=== PATIENT | male | born 1970 | race Caucasian/White ===

== ENCOUNTER 2019-02-28 13:40 | Observation (INO) | payer BC ==
--- NOTE | 2019-02-28 14:11 | ED ---
General Adult HPI - General Chief complaint: Chest Pain Stated complaint: Chest pressure/facial numbness Time Seen by Provider: 02/28/19 13:57 Source: patient Mode of arrival: ambulatory Limitations: no limitations - History of Present Illness Initial comments: Dictation was produced using [employer] dictation software. please excuse any g rammatical, word or spelling errors. Chief Complaint: 48-year-old male with multiple comorbidities presents with severe chest pain with radiation to the left chest. History of Present Illness: It is a 48-year-old male. He states he has had a couple hours of extreme sharp chest pain with some dull characteristic surrounding it. He states that the pain radiates to his left side. He was told that he appeared pale by a coworker. Patient also complains of some paresthesias to the left upper extremity left lower extremity that have been persistent since the onset of his symptoms. Patient denies any exacerbating or mitigating factors. Denies any pleurisy. Patient denies any history of aortic disease. He was recently value by core filer for Holter monitor placement. The ROS documented in this emergency department record has been reviewed and confirmed by me. Those systems with pertinent positive or negative responses have been documented in the HPI. All other systems are other negative and/or noncontributory. PHYSICAL EXAM: General Impression: Alert and oriented x3, not in acute distress HEENT: Normocephalic atraumatic, extra-ocular movements intact, pupils equal and reactive to light bilaterally, mucous membranes moist. Cardiovascular: Heart regular rate and rhythm, S1&S2 audible, no murmurs, rubs or gallops Chest: Lungs clear to auscultation bilaterally, no rhonchi, no wheeze, no rales Abdomen: Bowel sounds present, abdomen soft, non-tender, non-distended, no organomegaly Musculoskeletal: Pulses present and equal in all extremities, no peripheral margarito a Motor: no focal deficits noted Neurological: CN II-XII grossly intact, no focal motor or sensory deficits noted Skin: Intact with no visualized rashes Psych: Normal affect and mood ED course: 48-year-old male presents with chest pain and neurologic symptoms. Signs upon arrival are within acceptable limits. Laboratory evaluation obtained. Mild leukocytosis secondary to stress. Metabolic panel is negative. Cardiac enzymes negative. There is concern for aortic dissection versus on embolus given patient's symptoms. CT angios negative for any acute processes. There are incidental findings of active lymph nodes. Clinical presentation consistent with atypical chest pain with typical features. Patient given aspirin. Patient be admitted for serial troponins and cardiac consultation. Patient care discussed with some physician group who is willing to accept admission. EKG interpretation: Ventricular rate 76, normal sinus rhythm, CA interval 146, QS 80, QTc 398. No CA prolongation, no QTC prolongation, no ST or T-wave changes noted. Nonspecific changes. There appears to be some mild hyperacute T waves noted in the anterior precordial leads. - Related Data Home Medications Medication Instructions Recorded Confirmed No Known Home Medications 06/24/14 02/28/19 Allergies Allergy/AdvReac Type Severity Reaction Status Date / Time Sulfa (Sulfonamide Allergy Rash/Hives Verified 02/28/19 14:04 Antibiotics) Tetracyclines Allergy Rash/Hives Verified 02/28/19 14:04 Review of Systems ROS Statement: Those systems with pertinent positive or pertinent negative responses have been documented in the HPI. ROS Other: All systems not noted in ROS Statement are negative. Past Medical History Additional Past Medical History / Comment(s): aortic and mitral valve prolapse. History of Any Multi-Drug Resistant Organisms: None Reported Additional Past Surgical History / Comment(s): urethral surgery, benign tumor removed from left side of neck, cyst removed from left wrist. Past Psychological History: No Psychological Hx Reported Smoking Status: Current every day smoker Past Alcohol Use History: None Reported Past Drug Use History: None Reported General Exam Limitations: no limitations Course Vital Signs 02/28/19 02/28/19 02/28/19 13:47 14:07 14:47 Temperature 98.2 F Pulse Rate 73 69 Pulse Rate [ 67 Bilateral] Respiratory 18 16 Rate Blood Pressure 150/101 134/90 O2 Sat by Pulse 100 96 Oximetry Medical Decision Making - Lab Data Result diagrams: 02/28/19 14:20 02/28/19 14:20 Lab Results 02/28/19 02/28/19 02/28/19 Range/Units 14:20 14:20 14:20 WBC 10.7 H (3.8-10.6) k/uL RBC 5.24 (4.30-5.90) m/uL Hgb 15.2 (13.0-17.5) gm/dL Hct 46.1 (39.0-53.0) % MCV 88.0 (80.0-100.0) fL MCH 29.1 (25.0-35.0) pg MCHC 33.0 (31.0-37.0) g/dL RDW 14.3 (11.5-15.5) % Plt Count 191 (150-450) k/uL Neutrophils % 62 % Lymphocytes % 27 % Monocytes % 5 % Eosinophils % 2 % Basophils % 1 % Neutrophils # 6.6 (1.3-7.7) k/uL Lymphocytes # 2.9 (1.0-4.8) k/uL Monocytes # 0.6 (0-1.0) k/uL Eosinophils # 0.3 (0-0.7) k/uL Basophils # 0.1 (0-0.2) k/uL Sodium 139 (137-145) mmol/L Potassium 4.8 (3.5-5.1) mmol/L Chloride 106 (98-107) mmol/L Carbon Dioxide 26 (22-30) mmol/L Anion Gap 7 mmol/L BUN 11 (9-20) mg/dL Creatinine 0.81 (0.66-1.25) mg/dL Est GFR (CKD-EPI)AfAm >90 (>60 ml/min/1.73 sqM) Est GFR (CKD-EPI)NonAf >90 (>60 ml/min/1.73 sqM) Glucose 90 (74-99) mg/dL Calcium 9.1 (8.4-10.2) mg/dL Total Bilirubin 0.5 (0.2-1.3) mg/dL AST 28 (17-59) U/L ALT 19 L (21-72) U/L Alkaline Phosphatase 111 (38-126) U/L Troponin I <0.012 (0.000-0.034) ng/mL Total Protein 7.2 (6.3-8.2) g/dL Albumin 4.3 (3.5-5.0) g/dL Lipase 105 (23-300) U/L Disposition Clinical Impression: Chest pain Disposition: ADMITTED IP TO THIS [facility] Condition: Fair Referrals: None,Stated [Primary Care Provider] - 1-2 days Decision Time: 15:31
[2019-02-28 14:51] LABS: ALT 19 U/L (21-72); AST 28 U/L (17-59); Albumin 4.3 g/dL (3.5-5.0); Alkaline Phosphatase 111 U/L (38-126); Anion Gap 7 mmol/L; Blood Urea Nitrogen 11 mg/dL (9-20); Calcium 9.1 mg/dL (8.4-10.2); Carbon Dioxide 26 mmol/L (22-30); Chloride 106 mmol/L (98-107); Glucose 90 mg/dL (74-99); Lipase 105 U/L (23-300); Potassium 4.8 mmol/L (3.5-5.1); Sodium 139 mmol/L (137-145); Total Bilirubin 0.5 mg/dL (0.2-1.3); Total Protein 7.2 g/dL (6.3-8.2)
--- NOTE | 2019-02-28 14:56 | CT ---
EXAMINATION TYPE: CT angio chest DATE OF EXAM: 02/28/2019 COMPARISON: NONE HISTORY: Chest pain and left arm numbness CT DLP: 351.8 mGycm. Automated Exposure Control for Dose Reduction was Utilized. CONTRAST: CTA scan of the thorax is performed with IV Contrast, patient injected with 100 mL of Isovue 370, pul monary embolism protocol. MIP Images are created on CT scanner and reviewed. FINDINGS: LUNGS: Mild paraseptal emphysematous changes are seen of the lungs. The lungs are grossly clear, ther e is no concerning parenchymal mass or nodule identified. There is no pleural effusion or pneumotho rax seen. The tracheobronchial tree is patent. MEDIASTINUM: There is satisfactory enhancement of the pulmonary artery and its branches, there is no CT evidence for pulmonary embolism. There are no greater than 1 cm hilar or mediastinal lymph nodes. Limits of normal 1.0 cm left aorticopulmonary window lymph node is seen in neck of the reactive. No cardiomegaly or pericardial effusion is seen. No evidence of thoracic aortic aneurysm nor dissection . OTHER: Bilateral slightly asymmetric gynecomastia seen, right greater than left in the retroareolar r egion. Hepatic steatosis is also noted in the visualized portion of the liver. IMPRESSION: 1. No evidence of pulmonary embolism, thoracic aortic aneurysm or dissection. 2. Incidentally noted solitary upper limits of normal size left aorticopulmonary window lymph node, l ikely reactive. 3. Also incidentally noted mild gynecomastia in hepatic steatosis.
[2019-02-28 15:24] LABS: Basophils # (A) 0.1 k/uL (0-0.2); Basophils % (A) 1 %; Eosinophils # (A) 0.3 k/uL (0-0.7); Eosinophils % (A) 2 %; HCT 46.1 % (39.0-53.0); HGB 15.2 gm/dL (13.0-17.5); Lymphocytes # (A) 2.9 k/uL (1.0-4.8); Lymphocytes % (A) 27 %; MCH 29.1 pg (25.0-35.0); Mean Platelet Volume 8.3; Monocytes # (A) 0.6 k/uL (0-1.0); Monocytes % (A) 5 %; Neutrophils # (A) 6.6 k/uL (1.3-7.7); Neutrophils % (A) 62 %; Platelet Count 191 k/uL (150-450); RBC 5.24 m/uL (4.30-5.90); RDW 14.3 % (11.5-15.5); WBC 10.7 k/uL (3.8-10.6)
[2019-02-28] MEDS ORDERED: ASPIRIN 81 MG PO STA (15:30)
[2019-02-28] MEDS ORDERED: NITROGLYCERIN SL TABS 0.4 MG TAB SUBLINGUAL PRN (15:31)
[2019-02-28] MEDS ORDERED: MORPHINE SULFATE 2 MG/ML SYRINGE IV PRN (15:55)
[2019-02-28] MEDS ORDERED: ACETAMINOPHEN TAB 325 MG TAB PO PRN (15:55)
[2019-02-28] MEDS ORDERED: HYDROcodone/APAP 5-325MG 1 EACH TAB PO PRN (15:55)
[2019-02-28] MEDS ORDERED: NALOXONE 0.4 MG/ML 1 ML VIAL IV PRN (15:55)
[2019-02-28 17:03] VITALS: BMI 26.7
--- NOTE | 2019-02-28 18:23 | P.CNNES ---
History of Present Illness Consult date: 02/28/19 Reason for Consult: Numbness face, left side Chief complaint: Numbness left side, weakness History of Present Illness: I was informed about this patient 10 minutes ago at 5:40 PM for evaluation for possible stroke TIA. Came to see the patient right away and evaluated the patient. Patient is a 48-year-old right-hand dominant male, who was at work at 12:30 PM, when he suddenly felt pressure in the chest, which he described as a stabbing pain. He was noticed to be pale at that time. He went into the office at work, and sat down. It lasted for 15 minutes, and about 15 minutes later, he noticed mental confusion, disorientation, fogginess, and his left leg became heavy, left arm was numb and his left jaw felt numb. He felt disoriented, like in a daze. He also was noted to have to force to focus on certain words. Patient came to the hospital and was evaluated for chest pain. There was no facial droop, sl urred speech, loss of vision, diplopia, nausea or vomiting. He never had any history of strokes or TIAs. Patient's blood pressure in the ER was 134/90, pulse rate 69 and respirations 16. No computed tomography scan of head available. Patient states that he still has some residual numbness of the left lower jaw, left arm distally in the ulnar distribution, and some heaviness in the left leg. At this time patient is not a candidate for intravenous TPA, as his symptoms have been present for greater than 4.5 hours, and low NIH stroke scale. Patient states that he used to have hypertension, was better, but lately the blood pressure has been going up again. Denies diabetes. Patient has been a smoker for 31 years. He smoked 1 pack per day for initial 10 years, then 2 packs per day for next 10-15 years, and now cutback to less than one pack per day in the past 5 years. Patient denies any alcohol or drugs. Patient does not take any antiplatelet medication at home. Review of Systems Constitutional: Reports weakness Eyes: denies blurred vision, denies bulging eye, denies decreased vision, denies diplopia, denies loss of vision Ears: deny: decreased hearing Ears, nose, mouth and throat: Denies vertigo Cardiovascular: Reports chest pain, Reports high blood pressure, Denies shortness of breath Respiratory: Denies wheezing Past Medical History Past Medical History: Asthma, Chest Pain / Angina, GERD/Reflux, Hypertension, Mitral Valve Prolapse (MVP), Pneumonia, Respiratory Disorder, Sleep Apnea/CPAP/BIPAP Additional Past Medical History / Comment(s): aortic and mitral valve prolapse, broncitis History of Any Multi-Drug Resistant Organisms: None Reported Additional Past Surgical History / Comment(s): urethral surgery, benign tumor removed from left side of neck, cyst removed from left wrist. Past Anesthesia/Blood Transfusion Reactions: No Reported Reaction Past Psychological History: No Psychological Hx Reported Smoking Status: Current every day smoker Past Alcohol Use History: None Reported Past Drug Use History: None Reported - Past Family History Mother Family Medical History: Hypertension, Mitral Valve Prolapse (MVP) Father Family Medical History: Cancer, COPD Additional Family Medical History / Comment(s): skin ca Medications and Allergies Home Medications Medication Instructions Recorded Confirmed Type No Known Home Medications 06/24/14 02/28/19 History Allergies Allergy/AdvReac Type Severity Reaction Status Date / Time Sulfa (Sulfonamide Allergy Rash/Hives Verified 02/28/19 14:04 Antibiotics) Tetracyclines Allergy Rash/Hives Verified 02/28/19 14:04 Physical Examination - Vital Signs Vital Signs: Vital Signs Temp Pulse Pulse Pulse Resp BP BP 02/28/19 16:26 98.2 F 72 16 168/97 02/28/19 16:08 97.8 F 81 16 146/91 02/28/19 14:47 69 16 134/90 02/28/19 14:07 67 02/28/19 13:47 98.2 F 73 18 150/101 Pulse Ox 02/28/19 16:26 99 02/28/19 16:08 98 02/28/19 14:47 96 02/28/19 14:07 02/28/19 13:47 100 Intake and Output 02/28/19 02/28/19 02/28/19 06:59 14:59 22:59 Other: Voiding Method Toilet Weight 87.09 kg On examination patient is a middle aged male, in no distress. There is no bruit or murmur. On cranial nerve examination, pupils are round and reacting to light. Visual erwin are full on confrontation. Extraocular muscles are intact with no nystagmus. Face is symmetric and tongue protrudes to midline. Palatal elevation and sensation normal. On muscle strength testing, he has left pronation, but no drift. The strength is normal in the arms and legs distally and proximally. No ataxia for [id number] testing. Tone and bulk of muscles normal. Reflexes are 1-1+ and plantars downgoing bilaterally. Patient has decreased sensation for touch involving the left side of the face and left arm, but is equal involving the legs. Patient walks with slight stifflegged on the left, which is new Results - Laboratory Findings CBC and BMP: 02/28/19 14:20 02/28/19 14:20 Abnormal Lab Findings: Abnormal Labs 02/28/19 02/28/19 14:20 14:20 WBC 10.7 H ALT 19 L Assessment and Plan Assessment: * 48-year-old male admitted with possible stroke versus TIA. Patient still has very minimal deficits on the left, with numbness of the left lower facial and brachial region. * Hypertension * Tobacco user Plan: * Patient needs to be evaluated for stroke/TIA. * Agree with starting aspirin 325 mg daily. Patient has received aspirin in the ER. * Computed tomography scan of the head to rule out CVA/bleed. * MRI of the brain. * Carotid Doppler to rule out carotid stenosis. * 2-D echo with bubble study to rule out PFO or other embolic source * Fasting a.m. lipid panel, hemoglobin A1c * Cardiology also consulted for chest pain. * Tobacco cessation. * We'll follow.
--- NOTE | 2019-02-28 18:40 | CT ---
EXAMINATION TYPE: CT brain wo con DATE OF EXAM: 02/28/2019 COMPARISON: NONE HISTORY: Left sided arm and face numbness with left leg heaviness. CT DLP: 1223.4 mGycm. Automated Exposure Control for Dose Reduction was Utilized. TECHNIQUE: CT scan of the head is performed without contrast. FINDINGS: There is no acute intracranial hemorrhage, mass effect, or midline shift identified. No s uspicious extra-axial fluid collection. The ventricles and sulci are within normal limits in size. F rontal sinuses are hypoplastic. Remaining visualized paranasal sinuses and mastoid air cells are well aerated. Calvarium appears intact. Globes are unremarkable. IMPRESSION: No acute intracranial hemorrhage, mass effect, or midline shift is seen.
--- NOTE | 2019-02-28 18:42 | P.HPIM ---
History of Present Illness H&P Date: 02/28/19 Chief Complaint: Chest pain, facial numbness, heaviness of the left lower ex tremity 48-year-old male with PMH of aortic and mitral valve prolapse presents the ED for chest pain. Patient reports an onset chest pain that started around 1 PM as he was casually walking at work. Chest pain is sternal, 9-10 out of 10 in severity, stabbing in nature. Patient also reported a pressure-like sensation around his sternal area for about 10-15 minutes. Coworkers noticed that the patient appeared flushed. Patient reports sitting down after the onset of chest pain, which subsided after 15 minutes. Patient then reported left arm numbness, left facial numbness/tingling and left lower extremity heaviness along with difficulties focusing and with pronouncing words. Of note, patient has been seeing cardiology for chest pain (Dr. Gaston). Patient had a Holter monitor that was o rdered which was taken off yesterday, patient to follow-up in the outpatient setting next week. He denies any headache, lower extremity edema, nausea, vomiting, fever, shortness of breath, palpitations, changes in urination or bowel habits. No changes in appetite or weight. Patient does complain of dry cough but associates that with his heartburn. Vital signs are stable. CBC showed mild leukocytosis of 10.7. CMP is unremarkable. Troponin was less than 0.02, EKG showing normal sinus rhythm. CT of the chest ruled out PE. Patient is admitted for chest pain, cardiology on consult. Past Medical History Past Medical History: Asthma, Chest Pain / Angina, GERD/Reflux, Hypertension, Mitral Valve Prolapse (MVP), Pneumonia, Respiratory Disorder, Sleep Apnea/CPAP/BIPAP Additional Past Medical History / Comment(s): aortic and mitral valve prolapse, broncitis History of Any Multi-Drug Resistant Organisms: None Reported Additional Past Surgical History / Comment(s): urethral surgery, benign tumor removed from left side of neck, cyst removed from left wrist. Past Anesthesia/Blood Transfusion Reactions: No Reported Reaction Past Psychological History: No Psychological Hx Reported Smoking Status: Current every day smoker Past Alcohol Use History: None Reported Past Drug Use History: None Reported - Past Family History Mother Family Medical History: Hypertension, Mitral Valve Prolapse (MVP) Father Family Medical History: Cancer, COPD Additional Family Medical History / Comment(s): skin ca Medications and Allergies Home Medications Medication Instructions Recorded Confirmed Type No Known Home Medications 06/24/14 02/28/19 History Allergies Allergy/AdvReac Type Severity Reaction Status Date / Time Sulfa (Sulfonamide Allergy Rash/Hives Verified 02/28/19 14:04 Antibiotics) Tetracyclines Allergy Rash/Hives Verified 02/28/19 14:04 Physical Exam Vitals: Vital Signs Temp Pulse Pulse Pulse Resp BP BP 02/28/19 16:26 98.2 F 72 16 168/97 02/28/19 16:08 97.8 F 81 16 146/91 02/28/19 14:47 69 16 134/90 02/28/19 14:07 67 02/28/19 13:47 98.2 F 73 18 150/101 Pulse Ox 02/28/19 16:26 99 02/28/19 16:08 98 02/28/19 14:47 96 02/28/19 14:07 02/28/19 13:47 100 Intake and Output 02/28/19 02/28/19 02/28/19 06:59 14:59 22:59 Other: Voiding Method Toilet Weight 87.09 kg General: [non toxic], [no distress], [appears at stated age] Derm: [warm], [dry] Head: [atraumatic], [normocephalic], [symmetric] Eyes: [EOMI], [no lid lag], [anicteric sclera] Mouth: [no lip lesion], [mucus membranes moist] Cardiovascular: [S1S2 reg], [no murmur], [positive DP pulse bilateral] Lungs: [CTA bilateral], [no rhonchi, no rales] , [no accessory muscle use] Abdominal: [soft], [ nontender to palpation], [no guarding], [no appreciable organomegaly] Ext: [no gross muscle atrophy], [no edema], [no contractures] Neuro: [ CN II-XI grossly intact except cranial nerve VII], [decreased sensation to touch in the left upper extremity], [strength 5 out of 5 in all 4 extr emities] Psych: [Alert], [oriented], [appropriate affect] Results CBC & Chem 7: 02/28/19 14:20 02/28/19 14:20 Labs: Abnormal Lab Results - Last 24 Hours (Table) 02/28/19 02/28/19 Range/Units 14:20 14:20 WBC 10.7 H (3.8-10.6) k/uL ALT 19 L (21-72) U/L Thrombosis Risk Factor Assmnt - Choose All That Apply Any of the Below Risk Factors Present?: Yes Each Factor Represents 1 point: Age 41-60 years, Obesity (BMI >25) Other Risk Factors: No Other congenital or acquired thrombophilia - If yes, enter type in comment: No Thrombosis Risk Factor Assessment Total Risk Factor Score: 2 Thrombosis Risk Factor Assessment Level: Low Risk Assessment and Plan Assessment: Assessment and Plan Chest pain, typical Left facial numbness with left lower extremity heaviness Aortic and mitral valve prolapse Leukocytosis Smoker Troponin < 0.012 x 1 with EKG showing normal sinus rhythm. Chest CTA rules out PE. Risk factors include smoking. Plan: Trend Troponin/EKG to rule out ACS. Continue aspirin. Echocardiogram. Lipid panel. Cardiology consult. Telemetry monitoring. Concerns for CVA given facial numbness and unilateral heaviness. Plan: Stroke workup. Follow CT head, MRI brain, Echocardiogram, Lipid panel, A1c, MRA head and neck. Advance neurochecks. Fall and seizure precautions. Plan: Follow Cardiology and Echocardiogram. Likely reactive. Patient afebrile. Plan: Repeat CBC. Risk factor for ACS and CVA. Plan: Quit smoking. Patient admitted for chest pain, Cardiology on consult to rule out ACS. Concerns for CVA, workup underway, Neurology consulted. DVT prophylaxis: [Heparin] Discussed with: [Patient and ] Anticipated discharge: [1-2 days] Anticipated discharge place: [Home] A total of [45] minutes was spent on the care of this complex patient more than 50% of the time was spent in counseling and care coordination. Patient would like to make his Nena decision maker in the case he cant make decisions for himself. Patient reiterates that he would like to be FULL CODE at this time.
[2019-02-28] MEDS: HEPARIN SODIUM,PORCINE 5,000 UNIT/ML 1 ML VIAL SQ SCH (20:10)
[2019-03-01 01:12] LABS: Cholesterol 205 mg/dL (<200); HDL Cholesterol 31 mg/dL (40-60); LDL Cholesterol,Calculated 126 mg/dL (0-99); Triglycerides 242 mg/dL (<150)
[2019-03-01] MEDS: PANTOPRAZOLE 40 MG TABLET PO SCH (06:45)
--- NOTE | 2019-03-01 08:21 | US ---
EXAMINATION TYPE: US carotid duplex BILAT DATE OF EXAM: 03/01/2019 COMPARISON: NONE CLINICAL HISTORY: numbness. Left facial numbness, no hx of tia, no HTN EXAM MEASUREMENTS: RIGHT: Peak Systolic Velocity (PSV) cm/sec ----- Right CCA: 47.9 ----- Right ICA: 63.6 ----- Right ECA: 78.8 ICA/CCA ratio: 1.3 RIGHT: End Diastole cm/sec ----- Right CCA: 13.9 ----- Right ICA: 23.0 ----- Right ECA: 14.1 LEFT: Peak Systolic Velocity (PSV) cm/sec ----- Left CCA: 63.3 ----- Left ICA: 72.1 ----- Left ECA: 72.1 ICA/CCA ratio: 1.1 LEFT: End Diastole cm/sec ----- Left CCA: 21.5 ----- Left ICA: 34.5 ----- Left ECA: 10.6 VERTEBRALS (direction of flow): Right Vertebral: Antegrade Left Vertebral: Antegrade Rhythm: Normal No elevated velocities or significant stenosis. Bilateral wall thickening. Plaque seen in left bulb . IMPRESSION: I DO NOT SEE EVIDENCE OF A HEMODYNAMICALLY SIGNIFICANT STENOSIS IN EITHER CAROTID SYSTEM. Criteria for Assigning % of Stenosis / Diameter reduction (Estimation based on the indirect measurements of the internal carotid artery velocities (ICA PSV). 1. Normal (no stenosis)=ICA PSV < 125 cm/s: ratio < 2.0: ICA EDV<40 cm/s. 2. Less than 50% stenosis=ICA PSV < 125 cm/s: ratio < 2.0: ICA EDV<40 cm/s. 3. 50 to 69% stenosis=ICA PSV of 125 to 230 cm/s: ration 2.0 ? 4.0: ICA EDV 40-100 cm/s. 4. Greater than 70% stenosis to near occlusion= ICA PSV > 230 cm/s: ratio > 4.0: ICA EDV > 100 cm/s. 5. Near occlusion= ICA PSV velocities may be low or undetectable: variable ratio and ICA EDV. 6. Total occlusion=unable to detect flow.
[2019-03-01] MEDS: ASPIRIN 325 MG TAB PO SCH (08:41)
[2019-03-01] MEDS: HEPARIN SODIUM,PORCINE 5,000 UNIT/ML 1 ML VIAL SQ SCH ×2 (08:41→20:11)
[2019-03-01] MEDS: ATORVASTATIN 40 MG TAB PO SCH (08:45)
--- NOTE | 2019-03-01 09:07 | CONS ---
CONSULTATION Mr. Brown is 48-year-old male with history of tobacco use, probable obstructive sleep apnea, who presented with symptoms of chest pain as well as an episode of left-sided numbness and some weakness with some difficulty in speaking. The patient was at work yesterday when he had severe chest discomfort, lasted for about 15 minutes. Subsequently resolved, but he started to complain of numbness and weakness on the left side and was able to speak but he had to concentrate to get the words out. Came into the emergency room to be evaluated. The patient has been seen recently by insole tack puller hand in [place] and had underwent a 48 hour Holter monitor, but had no documented arrhythmia according to him. He has a scheduled stress test and echocardiogram to be done in a few weeks. He has no prior cardiac history except for history of mitral valve prolapse 5-6 years ago and underwent stress test at that time that was unremarkable. He has some dyspnea on exertion when he over exerts himself. He has occasional left-sided chest discomfort that is not activity related. He has no PND, no orthopnea. No peripheral edema. He has apnea according to him. He has no documented malignant arrhythmia. His coronary risk factors are remarkable for smoking which he is trying to stop he used to use. He used to have a history of hypertension, but after adjusting his eating habits, that improved. His mother recently for myocardial infarction according to him and he has no history of diabetes. MEDICATION: None at home. REVIEW OF SYSTEMS: RESPIRATORY SYSTEM: He has a cough. He has chronic tobacco use and some dyspnea on exertion. GI system: No recent GI bleed. No peptic ulcer disease. system: No dysuria or hematuria. NERVOUS SYSTEM: No prior history of stroke or seizure. PHYSICAL EXAMINATION: 48-year-old male, alert, oriented, in no apparent distress. Blood pressure 127/70 with a heart rate in the 60s. HEAD: Normocephalic. Eyes sclerae anicteric. NECK: Good upstroke. No bruit. No jugular venous distention. LUNGS: Clear to auscultation. HEART: Regular rate and rhythm. S1, S2. No S3. No S4. No murmur or rub. ABDOMEN: Soft, nontender. Positive bowel sounds. No organomegaly. EXTREMITIES: No edema. Intact distal pulses. LAB DATA: Lab data revealed troponin less than 0.012 for 3 samples. Cholesterol 205, LDL 126, BUN and creatinine 11 and 0.81. Hemoglobin of 15.2. EKG revealed a sinus mechanism, normal axis and intervals with no acute changes. Chest CT angiogram shows no evidence of pulmonary embolism. No reported calcifications. Carotid ultrasound revealed no evidence of significant disease and a CT scan of the brain shows no acute changes. IMPRESSION: 1. Chest discomfort of unclear etiology. No evidence of myocardial infarction. 2. Left-sided numbness and mild weakness, almost resolved, could be transient ischemic attack, although unclear. 3. Prior history of mitral valve prolapse, although on examination, I cannot appreciate a significant murmur. 4. History of smoking. 5. Hyperlipidemia. RECOMMENDATION: I will obtain echocardiogram with Doppler to evaluate his status and I will also obtain a stress echocardiogram. I have added to his regimen are Lipitor 40 mg daily. The patient will benefit from a sleep study as an outpatient. Depending on the results of testing, further recommendations will be made. Thank you for this consult. We will follow with you. АНДРЕЙ / IJN: [id number] /
--- NOTE | 2019-03-01 11:22 | P.PN ---
Subjective Progress Note Date: 03/01/19 Principal diagnosis: Facial numbness Patient was seen and examined. No acute events overnight. Patient reports complete resolution of his chest pain. He reports resolution of a heaviness in his left upper and left lower extremity. He continues to complain of numbness over the lower side of his left face. Patient denies chest pain, shortness of breath or palpitations. No nausea or vomiting. No fever or chills. Objective - Vital Signs Vital signs: Vital Signs Temp 97.8 F 03/01/19 08:00 Pulse 72 03/01/19 08:00 Resp 18 03/01/19 08:00 BP 155/95 03/01/19 08:00 Pulse Ox 96 03/01/19 08:00 Intake & Output 02/28/19 03/01/19 03/01/19 18:59 06:59 18:59 Intake Total 222 360 Balance 222 360 Weight 87.09 kg 84.9 kg Intake: Oral 222 360 Other: Voiding Method Toilet Toilet # Voids 1 - Exam General: [non toxic], [no distress], [appears at stated age] Derm: [warm], [dry] Head: [atraumatic], [normocephalic], [symmetric] Eyes: [EOMI], [no lid lag], [anicteric sclera] Mouth: [no lip lesion], [mucus membranes moist] Cardiovascular: [S1S2 reg], [no murmur], [positive DP pulse bilateral] Lungs: [CTA bilateral], [no rhonchi, no rales] , [no accessory muscle use] Abdominal: [soft], [ nontender to palpation], [no guarding], [no appreciable organomegaly] Ext: [no gross muscle atrophy], [no edema], [no contractures] Neuro: [ CN II-XI grossly intact except cranial nerve VII], [sensation intact to touch in all 4 extremities], [strength 5 out of 5 in all 4 extremities] Psych: [Alert], [oriented], [appropriate affect] - Labs CBC & Chem 7: 02/28/19 14:20 02/28/19 14:20 Labs: Abnormal Lab Results - Last 24 Hours (Table) 02/28/19 02/28/19 02/28/19 Range/Units 14:20 14:20 14:20 WBC 10.7 H (3.8-10.6) k/uL ALT 19 L (21-72) U/L Triglycerides 242 H (<150) mg/dL Cholesterol 205 H (<200) mg/dL LDL Cholesterol, Calc 126 H (0-99) mg/dL HDL Cholesterol 31 L (40-60) mg/dL Assessment and Plan Assessment: Assessment and Plan Chest pain, typical Left facial numbness with left lower extremity heaviness Hyperlipidemia Aortic and mitral valve prolapse Leukocytosis Smoker Troponin < 0.012 x 3 with EKG showing normal sinus rhythm, ACS ruled out. Chest CTA rules out PE. Risk factors include smoking. Plan: Continue aspirin. Follow Echocardiogram. Cardiology consulted, recommends echo and stress test. Telemetry monitoring. Concerns for CVA given facial numbness and unilateral heaviness. CT brain negative. Carotid ultrasound negative. Plan: Stroke workup. Follow MRI brain, A1c, MRA head and neck. Advance neurochecks. Fall and seizure precautions. Lipid panel shows total cholesterol 205, triglyceride of 242, LDL of 126 and HDL 31. Plan: Start Lipitor. Plan: Follow Cardiology and Echocardiogram. Likely reactive. Patient afebrile. Plan: Repeat CBC. Risk factor for ACS and CVA. Plan: Quit smoking. Patient admitted for chest pain, ACS ruled out, plans for stress test. Concerns for CVA, workup underway, Neurology consulted. DC in 1-2 days.
--- NOTE | 2019-03-01 13:26 | ECHOF ---
Referral Reason:cp MEASUREMENTS -------- HEIGHT: 180.3 cm WEIGHT: 84.8 kg BP: 127/78 RVIDd: 3.1 cm (< 3.3) IVSd: 1.1 cm (0.6 - 1.1) LVIDd: 5.3 cm (3.9 - 5.3) LVPWd: 1.1 cm (0.6 - 1.1) IVSs: 1.8 cm LVIDs: 3.5 cm LVPWs: 1.6 cm LA Diam: 3.0 cm (2.7 - 3.8) LAESV Index (A-L): 23.13 ml/m Ao Diam: 3.6 cm (2.0 - 3.7) AV Cusp: 2.3 cm (1.5 - 2.6) MV EXCURSION: 23.991 mm (> 18.000) MV EF SLOPE: 142 mm/s (70 - 150) EPSS: 1.0 cm MV E Matteo: 0.81 m/s MV DecT: 299 ms MV A Matteo: 0.54 m/s MV E/A Ratio: 1.51 AR PHT: 963 ms RAP: 5.00 mmHg RVSP: 26.51 mmHg FINDINGS -------- Sinus rhythm. This was a technically good study. The left ventricular size is normal. There is borderline concentric left ventricular hypertrophy. Overall left ventricular systolic function is normal with, an EF between 55 - 60 %. The right ventricle is normal in size. Normal LA size by volume 22+/-6 ml/m2. The right atrium is normal in size. Interatrial and interventricular septum intact. There is mild aortic valve sclerosis. There is mild aortic regurgitation. The mitral valve is normal. There is trace to mild mitral regurgitation. Mild tricuspid regurgitation present. Right ventricular systolic pressure is normal at < 35 mmHg. The pulmonic valve was not well visualized. There is no pulmonic regurgitation present. The aortic root size is normal. Normal inferior vena cava with normal inspiratory collapse consistent with estimated right atrial pre ssure of 5 mmHg. There is no pericardial effusion. CONCLUSIONS -------- 1. Sinus rhythm. 2. This was a technically good study. 3. The left ventricular size is normal. 4. There is borderline concentric left ventricular hypertrophy. 5. Overall left ventricular systolic function is normal with, an EF between 55 - 60 %. 6. Normal LA size by volume 22+/-6 ml/m2. 7. Interatrial and interventricular septum intact. 8. There is mild aortic valve sclerosis. 9. There is mild aortic regurgitation. 10. The mitral valve is normal. 11. There is trace to mild mitral regurgitation. 12. Mild tricuspid regurgitation present. 13. Right ventricular systolic pressure is normal at < 35 mmHg. 14. The pulmonic valve was not well visualized. 15. The aortic root size is normal. 16. Normal inferior vena cava with normal inspiratory collapse consistent with estimated right atrial pressure of 5 mmHg. 17. There is no pericardial effusion. ADVERTISING WRITER: Holly Taylor RDCS
--- NOTE | 2019-03-01 17:29 | P.PN ---
Subjective Progress Note Date: 03/01/19 Patient states his left arm paresthesias, left leg heaviness has resolved. His left facial numbness has also almost gone except for some area of numbness involving the left lower lip region. Denies any weakness or any other focal symptoms. Carotid Doppler showed no significant stenosis. 2-D echo showed normal left ventricular size, EF 55-60%. Inter-atrial and interventricular septum intact. Mild aortic sclerosis, mild aortic regurgitation. Total cholesterol is 205, LDL 126, HDL 31, triglycerides 242. Hemoglobin A1c pending. Objective - Vital Signs Vital signs: Vital Signs Temp 97.8 F 03/01/19 16:00 Pulse 63 03/01/19 16:00 Resp 17 03/01/19 16:00 BP 140/89 03/01/19 16:00 Pulse Ox 96 03/01/19 16:00 Intake & Output 02/28/19 03/01/19 03/01/19 18:59 06:59 18:59 Intake Total 222 600 Balance 222 600 Weight 87.09 kg 84.9 kg Intake: Oral 222 600 Other: Voiding Method Toilet Toilet Toilet # Voids 1 1 - Exam Patient's mental status is normal. Cranial nerves normal. Speech and language functions normal. On muscle strength testing, there is no pronator drift. Strength is completely normal in the arms and legs. No ataxia. Sensations equal. Plantars downgoing. Tone and bulk of muscles and gait normal. - Labs CBC & Chem 7: 02/28/19 14:20 02/28/19 14:20 Labs: Abnormal Lab Results - Last 24 Hours (Table) 02/28/19 Range/Units 14:20 Triglycerides 242 H (<150) mg/dL Cholesterol 205 H (<200) mg/dL LDL Cholesterol, Calc 126 H (0-99) mg/dL HDL Cholesterol 31 L (40-60) mg/dL Assessment and Plan Assessment: * 48-year-old male admitted with possible stroke versus TIA. * Hypertension * Hyperlipidemia * Tobacco user Plan: * Continue aspirin 325 mg daily. * Agree with starting Lipitor 40 mg daily. * MRI of the brain pending. * Carotid Doppler showed no significant carotid stenosis. * 2-D echo negative for any embolic source * Hemoglobin A1c pending * Cardiology also following the patient. * Tobacco cessation. * We'll follow.
[2019-03-01 21:24] VITALS: RESP 18
[2019-03-02 08:38] VITALS: PULSE 64
--- NOTE | 2019-03-02 10:43 | P.PN ---
Subjective Progress Note Date: 03/02/19 Patient states his left arm paresthesias, left leg heaviness has resolved. His left facial numbness has also resolved. He feels left leg is fine. However his feels that he walks still different gait. No new neuro symptoms. Patient had a stress test also completed, which according to the patient is reportedly normal. Await official results. Carotid Doppler showed no significant stenosis. 2-D echo showed normal left ventricular size, EF 55-60%. Inter-atrial and interventricular septum intact. Mild aortic sclerosis, mild aortic regurgitation. Total cholesterol is 205, LDL 126, HDL 31, triglycerides 242. Hemoglobin A1c pending. Objective - Vital Signs Vital signs: Vital Signs Temp 98.6 F 03/02/19 08:00 Pulse 64 03/02/19 08:00 Resp 18 03/02/19 08:00 BP 131/80 03/02/19 08:00 Pulse Ox 96 03/02/19 08:00 Intake & Output 03/01/19 03/02/19 03/02/19 18:59 06:59 18:59 Intake Total 600 222 Balance 600 222 Weight 84.7 kg Intake: Oral 600 222 Other: Voiding Method Toilet Toilet Toilet # Voids 1 1 1 - Exam Patient's mental status is normal. Cranial nerves normal. Face is symmetric. Speech and language functions normal. On muscle strength testing, there is no pronator drift. Strength is completely normal in the arms and legs. No ataxia. Sensations equal. Plantars downgoing. Tone and bulk of muscles and gait nor mal. - Labs CBC & Chem 7: 02/28/19 14:20 02/28/19 14:20 Assessment and Plan Assessment: * 48-year-old male admitted with TIA. MRI showed no acute ischemic stroke. * Hypertension * Hyperlipidemia * Tobacco user Plan: * Continue aspirin 325 mg daily. * Continue Lipitor 40 mg daily. * MRI of the brain showed no acute ischemic stroke. Some small vessel disease. * Carotid Doppler showed no significant carotid stenosis. * 2-D echo negative for any embolic source * Hemoglobin A1c pending * Cardiology also following the patient. * Tobacco cessation. * Neurologically clear for discharge.
[2019-03-02 11:30] LABS: Hemoglobin A1C 5.6 % (4.0-6.0)
--- NOTE | 2019-03-02 11:43 | ECHOS ---
STRESS ECHOCARDIOGRAM DATE OF SERVICE: 03/02/2019 INDICATIONS: Chest pain. MEDICATIONS: Lipitor, aspirin. BASELINE HEART RATE: 60 BASELINE BLOOD PRESSURE: 126/65 MAXIMUM HEART RATE: 149 MAXIMUM BLOOD PRESSURE: 208/73 85% MPHR: 147 100% MPHR: 173 METS: 12 MAXIMUM STAGE REACHED: IV TOTAL EXERCISE TIME: 11 minutes CLINICAL INFORMATION: Baseline EKG shows sinus rhythm, normal axis, normal intervals. Patient exercised on Robin protocol for a total of 11 minutes achieving 12 METs, 86% of predicted maximal heart rate without chest pain or diagnostic ST-segment depression. Baseline echo shows normal left ventricular size, wall motion and systolic function. Postexercise, there is normal hyperdynamic response of all segments of myocardium noted. CONCLUSIONS: 1. Excellent exercise tolerance. 2. Negative stress test by EKG criteria. 3. Negative stress echo. MMODL / IJN: [id number] /
--- NOTE | 2019-03-02 11:48 | MR ---
EXAMINATION TYPE: MR brain wo con DATE OF EXAM: 03/02/2019 COMPARISON: CT brain 02/28/2019 HISTORY: numbness CONTRAST: Performed utilizing 0 mL intravenous Gadavist gadolinium contrast. TECHNIQUE: Multiplanar, multiecho imaging on a 3.0 Trina magnet is performed through the brain. Stud y is performed within 24 hours of arrival to the hospital. The craniovertebral junction is normal. The pituitary is normal. Diffusion-weighted imaging is performed. No abnormal hyperintensity is present to suggest an acute i ntracranial infarct or acute ischemic change. There appear to be approximately 5 subcortical white matter changes within the centrum semiovale fron criss lobes bilaterally. This is not of proportion to the patient age. Findings are nonspecific. Differ ential diagnosis could include etiologies such as microvascular ischemic change, migraine headaches, vasculitis. Ventricles and sulci are appropriate for the patient age. IMPRESSIONS: 1. Few small subcortical white matter changes which are nonspecific bilateral frontal lobes centrum s emiovale
--- NOTE | 2019-03-02 11:56 | MR ---
EXAMINATION TYPE: MR angio head wo con DATE OF EXAM: 03/02/2019 COMPARISON: None HISTORY: CVA CONTRAST: None TECHNIQUE: Multiplanar multiecho imaging on a 3.0 Trina magnet is performed through the nightmute of Jonathan lis. 3-D [id number] imaging is performed. Source images are reviewed on the computer in the axi al plane. Reconstructed images rotating on the computer are reviewed. FINDINGS: The internal carotid arteries bifurcate normally into A1 and M1 segments. The A2 segments are normal. Middle cerebral artery branches are normal. Ophthalmic arteries as visualized appear no rmal. Anterior communicating and posterior communicating arteries are not clearly identified as patent on s ource images or reconstructed images. Vertebrobasilar arteries within the [id number] are normal. Posterior cerebral vasculature is norm al. No suspicious aneurysm or aneurysmal dilatation is evident. No obstructions are identified. No sign ificant flow-limiting stenosis is evident. IMPRESSIONS: 1. NORMAL MRA ZUNI OF TODD.
[2019-03-02] MEDS: ASPIRIN 325 MG TAB PO SCH (12:09)
[2019-03-02] MEDS: HEPARIN SODIUM,PORCINE 5,000 UNIT/ML 1 ML VIAL SQ SCH (12:10)
[2019-03-02] MEDS: ATORVASTATIN 40 MG TAB PO SCH (12:10)
[2019-03-02] MEDS: PANTOPRAZOLE 40 MG TABLET PO SCH (12:10)
[2019-03-02 13:06] VITALS: BP 145/92; TEMP 98.5
--- NOTE | 2019-03-02 13:43 | P.DS ---
Providers Date of admission: 02/28/19 15:31 Expected date of discharge: 03/02/19 Attending physician: Irma Pérez DO Consults: 02/28/19 15:32 Consult Physician Urgent Consulting Provider: Lola Hernandez Consult Reason/Comments: chest pain Do you want consulting provider notified?: Yes 02/28/19 17:38 Consult Physician Urgent Consulting Provider: Sayda Peñaloza Consult Reason/Comments: numbness face and left side Do you want consulting provider notified?: Yes Primary care physician: Stated None Hospital Course: 48-year-old male with PMH of aortic and mitral valve prolapse presents the ED for chest pain. Patient reports an onset chest pain that started around 1 PM as he was casually walking at work. Chest pain is sternal, 9-10 out of 10 in severity, stabbing in nature. Patient also reported a pressure-like sensation around his sternal area for about 10-15 minutes. Coworkers noticed that the patient appeared flushed. Patient reports sitting down after the onset of chest pain, which subsided after 15 minutes. Patient then reported left arm numbness, left facial numbness/tingling and left lower extremity heaviness along with difficulties focusing and with pronouncing words. Of note, patient has been seeing cardiology for chest pain (Dr. Gaston). Patient had a Holter monitor that was ordered which was taken off yesterday, patient to follow-up in the outpatient setting next week. He denies any headache, lower extremity edema, nausea, vomiting, fever, shortness of breath, palpitations, changes in urination or bowel habits. No changes in appetite or weight. Patient does complain of dry cough but associates that with his heartburn. Vital signs are stable. CBC showed mild leukocytosis of 10.7. CMP is unremarkable. Troponin was less than 0.02, EKG showing normal sinus rhythm. CT of the chest ruled out PE. With regard to his chest pain but also rule out ACS. Troponin was less than 0.0123 with EKG showing normal sinus rhythm, ACS was ruled out. Cardiology was consulted and recommended echocardiogram and stress test. Stress test was negative. Echocardiogram showed EF 55-60% with concentric LVH. Lipid panel showed elevated total cholesterol 205, LDL of 126. There was some concerns of CVA given patient's facial numbness and unilateral heaviness. CT of the brain was negative. Carotid ultrasound was negative. MRI and MRA of the brain was negative for acute CVA. Patient was cleared from a neurology standpoint. Hemoglobin A1c was within normal limits. Patient was seen and examined. No acute events overnight. Patient reports complete resolution of his symptoms. He denies any numbness of the face, numbness/weakness/tingling of the extremities. He denies any chest pain, shortness of breath or palpitations. No nausea or vomiting. No fever or chills. Looking for to going home. General: [no distress], [appears at stated age] Derm: [warm], [dry] Head: [atraumatic], [normocephalic], [symmetric] Eyes: [EOMI], [no lid lag], [anicteric sclera] Mouth: [no lip lesion], [mucus membranes moist] Cardiovascular: [S1S2 reg], [no murmur], [positive posterior tibial pulse bilateral], Lungs: [CTA bilateral], [no rhonchi, no rales] , [no accessory muscle use] Abdominal: [soft], [ nontender to palpation], [no guarding], [no appreciable organomegaly] Ext: [no gross muscle atrophy], [no edema], [no contractures] Neuro: [ CN II-XI grossly intact], [no focal neuro deficits] Psych: [Alert], [oriented], [appropriate affect] Assessment and Plan Chest pain, typical Left facial numbness with left lower extremity heaviness Hyperlipidemia Aortic and mitral valve prolapse Leukocytosis Smoker Troponin < 0.012 x 3 with EKG showing normal sinus rhythm, ACS ruled out. Chest CTA rules out PE. Risk factors include smoking. Echocardiogram shows EF 55-60% with concentric LVH. Stress is negative for acute ischemia Plan: Continue aspirin. Cardiology consulted, recommends echo and stress test. Telemetry monitoring. Concerns for CVA given facial numbness and unilateral heaviness. CT brain negative. Carotid ultrasound negative. A1c is within normal limits. MRA of the brain is negative. MRI of the brain is negative for acute CVA. Plan: Stroke workup complete. Advance neurochecks. Fall and seizure precautions. Neurology consulted, cleared the patient for discharge. Lipid panel shows total cholesterol 205, triglyceride of 242, LDL of 126 and HDL 31. Plan: Start Lipitor. Plan: Follow Cardiology Likely reactive. Patient afebrile. Plan: Repeat CBC. Risk factor for ACS and CVA. Plan: Quit smoking. Pertinent Studies: Stress test, chest CTA, brain CT, echocardiogram, carotid ultrasound, head MRA, brain MRI Patient Condition at Discharge: Stable Plan - Discharge Summary Discharge Rx Participant: No New Discharge Prescriptions: New RX: Aspirin 325 mg PO DAILY #30 tab RX: Atorvastatin [Lipitor] 40 mg PO DAILY #30 tab Discharge Medication List RX: Aspirin 325 mg PO DAILY #30 tab 03/02/19 [Rx] RX: Atorvastatin [Lipitor] 40 mg PO DAILY #30 tab 03/02/19 [Rx] Follow up Appointment(s)/Referral(s): Lola Hernandez MD [STAFF PHYSICIAN] - 03/31/19 3:30 pm None,Stated [Primary Care Provider] - 1-2 days Jake Heard MD [STAFF PHYSICIAN] - 1 Week Activity/Diet/Wound Care/Special Instructions: Diet: Low-fat Follow-up with PCP within 1-2 days of discharge. Follow-up with cardiology with the appointment given to you. Follow-up with neurology with the appointment given to you. Take all medications as advised. Discharge Disposition: HOME SELF-CARE
--- NOTE | 2019-03-02 13:44 | P.PN ---
Subjective Progress Note Date: 03/02/19 This is a 48-year-old gentleman with history of nicotine dependence, obstructive sleep apnea, who presented to the hospital with symptoms of chest discomfort. He also had an episode of weakness with difficulty in speaking. For these reasons she came to the emergency room for further evaluation and treatment. The patient was seen in consultation by Dr. Hernandez and recommended today to undergo stress echocardiographic study which was performed and came back to be normal. He also had an echocardiogram with Doppler performed which revealed a normal left ventricular systolic function. MRA revealed normal [place]. CAT scan of the brain showed a few small subcortical white matter changes which are nonspecific. Blood pressure today 140/90 with a heart rate in the 60s, 99% on room air. White blood cell count 10.7, hemoglobin 15.2, platelet count 191. Sodium 139, potassium 4.8, BUN 11 and creatinine 0.8. Objective - Vital Signs Vital signs: Vital Signs Temp 98.5 F 03/02/19 12:00 Pulse 64 03/02/19 12:00 Resp 18 03/02/19 12:00 BP 145/92 03/02/19 12:00 Pulse Ox 99 03/02/19 12:00 Intake & Output 03/01/19 03/02/19 03/02/19 18:59 06:59 18:59 Intake Total 600 222 240 Balance 600 222 240 Weight 84.7 kg Intake: Oral 600 222 240 Other: Voiding Method Toilet Toilet Toilet # Voids 1 1 1 - Exam PHYSICAL EXAMINATION: GENERAL: 48-year-old gentleman in no acute distress at the time of my examination HEENT: Head is atraumatic, normocephalic. Pupils equal, round. Sclera anicteric. Conjunctiva are clear. Mucous membranes of the mouth are moist. Neck is supple. There is no elevated jugular venous pressure. No carotid bruit is heard. HEART EXAMINATION: Heart S1, S2 normal. No murmur or gallop heard. CHEST EXAMINATION: Lungs are clear to auscultation and precussion. No chest wall tenderness is noted on palpation or with deep breathing. ABDOMEN: Soft, nontender. Bowel sounds are heard. No organomegaly noted. EXTREMITIES: 2+ peripheral pulses with no evidence of peripheral edema and no calf tenderness noted. NEUROLOGIC patient is awake, alert and oriented 3 . . - Labs CBC & Chem 7: 05/18/19 14:20 02/28/19 14:20 Assessment and Plan Plan: Assessment and plan #1 chest pain, stress echocardiographic study negative for reversible ischemia. Echo showed normal LV function #2 left sided numbness with mild weakness, neurology workup in progress. #3 history of smoking #4 hyperlipidemia Plan From cardiology's perspective, patient may be able to be discharged home today. 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 DNP note has been reviewed, I agree with a documented findings and plan of care. Patient was seen and examined.
== END 2019-03-02 15:47 | disposition home or self-care (01) ==
LOC: EC 13:40 → 1SOBS 15:31 → 3SCARD 19:42
PROVIDERS: ADMIT Internal Medicine; ATTEND Internal Medicine
DX: R07.89 Other chest pain (principal); R20.0 Anesthesia of skin; R20.2 Paresthesia of skin; R05 Cough; R53.1 Weakness; R06.09 Other forms of dyspnea; R41.0 Disorientation, unspecified; K21.9 Gastro-esophageal reflux disease without esophagitis; J45.909 Unspecified asthma, uncomplicated; D72.829 Elevated white blood cell count, unspecified; I10 Essential (primary) hypertension; I70.0 Atherosclerosis of aorta; E78.5 Hyperlipidemia, unspecified; E66.9 Obesity, unspecified; Z68.26 Body mass index [BMI] 26.0-26.9, adult; G47.33 Obstructive sleep apnea (adult) (pediatric); Z87.01 Personal history of pneumonia (recurrent); Z87.09 Personal history of other diseases of the respiratory system; Z99.89 Dependence on other enabling machines and devices; Z88.2 Allergy status to sulfonamides; Z88.1 Allergy status to other antibiotic agents; I34.1 Nonrheumatic mitral (valve) prolapse; F17.210 Nicotine dependence, cigarettes, uncomplicated; Z82.5 Family history of asthma and other chronic lower respiratory diseases; Z80.8 Family history of malignant neoplasm of other organs or systems; Z82.49 Family history of ischemic heart disease and other diseases of the circulatory system
CPT/HCPCS: 96372 ×3; 99285; 36415; 93005; 93306; 93351; 80061; 80053; 83690; 84484 ×2; 85025; 83036; 93880; 70450; 71275; 70544; 70551; G0378 ×3; J1644 ×3; Q9967

== ENCOUNTER 2019-03-11 22:09 | Emergency (ER) | payer BC ==
--- NOTE | 2019-03-12 01:10 | US ---
EXAM: US Left Lower Extremity, venous CLINICAL HISTORY: ITS.REASON US Reason: Pain TECHNIQUE: Real-time ultrasound scan of the left lower extremity deep venous system with image documentation. COMPARISON: No relevant prior studies available. FINDINGS: Soft tissues: Unremarkable; no DVT. No abscess. No foreign body. IMPRESSION: No DVT.
--- NOTE | 2019-03-12 01:49 | ED ---
Extremity Problem HPI - General Chief complaint: Extremity Problem,Nontraumatic Stated complaint: Poss Blood Clot Time Seen by Provider: 03/11/19 23:22 Source: patient Mode of arrival: wheelchair Limitations: no limitations - History of Present Illness Initial comments: 48-year-old male patient presents to the emergency department today for evaluation of left lower extremity swelling and discomfort. Patient states he was recently discharged from the hospital after being admitted for TIA. Patient states he started on 2 baby aspirin per day after this. Patient states that for the last 3 days he has been having increased swelling to the left leg. Patient states leg feels tight and uncomfortable. He denies any specific calf or knee tenderness. Patient states he is able to ambulate without difficulty. Denies any history of blood clot. Denies any numbness or tingling to the leg. Denies any injury. Patient denies any recent rash, fever, chills, shortness breath, chest pain, abdominal pain, nausea, vomiting, diarrhea, constipation, back pain, dizziness, weakness, hematuria, dysuria, urinary urgency, urinary frequency, headache, visual changes, or any other complaints. - Related Data Previous Rx's Medication Instructions Recorded Aspirin 325 mg PO DAILY #30 tab 03/02/19 Atorvastatin [Lipitor] 40 mg PO DAILY #30 tab 03/02/19 Pantoprazole [Protonix] 40 mg PO AC-[id number] #90 tablet. 03/02/19 Allergies Allergy/AdvReac Type Severity Reaction Status Date / Time Sulfa (Sulfonamide Allergy Rash/Hives Verified 03/12/19 00:03 Antibiotics) Tetracyclines Allergy Rash/Hives Verified 03/12/19 00:03 Review of Systems ROS Statement: Those systems with pertinent positive or pertinent negative responses have been documented in the HPI. ROS Other: All systems not noted in ROS Statement are negative. Past Medical History Past Medical History: Asthma, Chest Pain / Angina, CVA/TIA, GERD/Reflux, Hypertension, Mitral Valve Prolapse (MVP), Pneumonia, Respiratory Disorder, Sleep Apnea/CPAP/BIPAP Additional Past Medical History / Comment(s): aortic and mitral valve prolapse, broncitis History of Any Multi-Drug Resistant Organisms: None Reported Additional Past Surgical History / Comment(s): urethral surgery, benign tumor removed from left side of neck, cyst removed from left wrist. Past Anesthesia/Blood Transfusion Reactions: No Reported Reaction Past Psychological History: No Psychological Hx Reported Smoking Status: Current every day smoker Past Alcohol Use History: None Reported Past Drug Use History: None Reported - Past Family History Mother Family Medical History: Hypertension, Mitral Valve Prolapse (MVP) Father Family Medical History: Cancer, COPD Additional Family Medical History / Comment(s): skin ca General Exam Limitations: no limitations General appearance: alert, in no apparent distress, other (Physical well- developed, well-nourished adult male patient in no acute distress. Vital signs upon presentation are temperature 98.4F, pulse 74, respirations 18, blood pressure 144/94, pulse ox 99% on room air.) Eye exam: Present: normal appearance, PERRL, EOMI. Absent: scleral icterus, conjunctival injection, periorbital swelling ENT exam: Present: normal exam, normal oropharynx, mucous membranes moist Respiratory exam: Present: normal lung sounds bilaterally. Absent: respiratory distress, wheezes, rales, rhonchi, stridor Cardiovascular Exam: Present: regular rate, normal rhythm, normal heart sounds. Absent: systolic murmur, diastolic murmur, rubs, gallop, clicks GI/Abdominal exam: Present: soft, normal bowel sounds. Absent: distended, tenderness, guarding, rebound, rigid Extremities exam: Present: full ROM, normal capillary refill, other (Left lower leg edema, non pitting. pedal and posttibial pulses are 2+ and equal bilaterally. Skin is pink, warm, dry. Cap refills less than 3 seconds.). Absent: normal inspection, tenderness, pedal edema, joint swelling, calf tenderness Neurological exam: Present: alert, oriented X3, CN II-XII intact Psychiatric exam: Present: normal affect, normal mood Skin exam: Present: warm, dry, intact, normal color. Absent: rash Course Vital Signs 03/11/19 03/12/19 03/12/19 22:23 00:45 01:57 Temperature 98.4 F 97.7 F Pulse Rate 74 69 67 Respiratory 18 17 16 Rate Blood Pressure 144/94 145/92 128/96 O2 Sat by Pulse 99 97 96 Oximetry Medical Decision Making - Medical Decision Making 48-year-old male patient is brought to the emergency department today for evaluation of left lower extremity swelling. Physical examination did reveal nonpitting edema to the left lower leg and foot. Neurovascular status is intact. Ultrasound was obtained and showed no evidence for DVT. Patient is given MIRELLA hose and educated regarding elevation of the feet. He is instructed follow up with his primary care physician for recheck in 1-2 days. Return parameters were discussed in detail. He verbalizes understanding and agrees with this plan. - Radiology Data Radiology results: report reviewed Ultrasound of the left lower extremity was obtained. Report was reviewed in its entirety. Impression by Dr. Singh shows no DVT. Disposition Clinical Impression: Swelling of lower extremity Disposition: HOME SELF-CARE Condition: Good Instructions (If sedation given, give patient instructions): Leg Edema (ED) Additional Instructions: Wear MIRELLA hose during the day, take them off while sleeping. Keep leg elevated. Follow-up through primary care physician for recheck in 1-2 days. Return to the emergency department immediately for any new, worsening, or concerning symptoms. Is patient prescribed a controlled substance at d/c from ED?: No Referrals: None,Stated [Primary Care Provider] - 1-2 days Time of Disposition: 01:49
[2019-03-12 01:58] VITALS: BP 128/96; PULSE 67; RESP 16; TEMP 97.7
== END 2019-03-12 01:58 | disposition home or self-care (01) ==
LOC: EC 22:09
DX: M79.89 Other specified soft tissue disorders (principal); G47.30 Sleep apnea, unspecified; F17.200 Nicotine dependence, unspecified, uncomplicated; Z99.89 Dependence on other enabling machines and devices; Z86.73 Personal history of transient ischemic attack (TIA), and cerebral infarction without residual deficits; Z88.1 Allergy status to other antibiotic agents; Z88.2 Allergy status to sulfonamides
CPT/HCPCS: 99283